=== PATIENT | female | born 1960 | race Caucasian/White ===

== ENCOUNTER 2025-04-16 16:31 | Inpatient (IN) | payer MEDICAID ==
[~2025-04-16] VITALS: Ht 157.5 cm; Wt 44.4 kg
[2025-04-16 18:43] LABS: MEAN PLATELET VOLUME 6.7 FL (7.4-10.4); RED CELL DISTRIBUTION WIDTH 16.2 % (11.5-14.5)
[2025-04-16 18:56] LABS: CREATININE 0.69 MG/DL (0.40-0.90); TOTAL CARBON DIOXIDE 20.3 MMOL/L (24-32); eCRCL 67 ML/MIN; eGFR 86 ML/MIN
[2025-04-16] MEDS: normal saline 1000ml 1,000 ML IV ONE (20:02)
[2025-04-16] MEDS: HYDROcodone/acetaminophen 10/325mg tab PO ONE ×2 (20:11→23:26)
--- NOTE | 2025-04-16 20:33 | RADIOLOGY REPORT ---
EXAM: CT CTA ABDOMEN PELVIS HISTORY: history of ischemic bowel COMPARISON: XR ABDOMEN AP + DECUB OR ERECT 2 VIEWS on DOS: 04/01/25 TECHNIQUE: CT angiogram of the abdomen and pelvis. CT scans at this facility use dose modulation, iterative reconstruction, and/or weight based dosing when appropriate to reduce radiation dose to as low as reasonably achievable. 100 mL of low osmolar contrast was administered without adverse effect. 3-D postprocessing was performed on a separate workstation under radiologist supervision. MIPs were created. VASCULAR FINDINGS: Celiac artery stent with normal distal opacification and without stent occlusion. Mixed atherosclerotic plaque with distal complete occlusion of the superior mesenteric artery (2-69). Mixed atherosclerotic plaque however patent bilateral renal arteries. Fusiform infrarenal ectasia measuring 2.6 cm with mixed atherosclerotic plaque causing up to 50 percent stenosis with predominantly soft plaque. Significant narrowing of bilateral common iliac arteries secondary to soft plaque with greater than 75 percent stenosis bilaterally. appearance of complete occlusion of the right external iliac artery (axial 133). Poor distal opacification of bilateral proximal femurs of the proximal femoral arteries. Nonvisualization of the inferior mesenteric artery likely completely occluded NON-VASCULAR FINDINGS: [LUNG BASES]: Calcific granuloma in the right middle lobe. The cardiac size is normal without pericardial effusion. [LIVER]: Small amount of fatty infiltration along the falciform ligament. [GALLBLADDER AND BILIARY TREE]: Surgically absent. [id number]-[id number] intrahepatic biliary dilation. Common bile duct dilation measuring up to 1.1 cm. No definitive filling defect [SPLEEN]: Unremarkable. [PANCREAS]: Unremarkable. [ADRENAL GLANDS]: Unremarkable [KIDNEYS]: No hydronephrosis. No nephroureterolithiasis. No suspicious focal lesion. [BLADDER]: Unremarkable for the degree distention. [PELVIC ORGANS]: Unremarkable. [BOWEL/MESENTERY]: Air-fluid level of the stomach with proximal mucosal hyperenhancement relative mucosal hyperenhancement of the ascending colon in the right lower quadrant (axial 87). Evidence of suspected pneumatosis intestinalis interval short-segment of presumed small bowel with the areas of bubbly lucency internally (axial 77). Imaging finding may be compatible with bowel ischemia. Correlate with lactate levels. No definitive portal venous gas. [ASCITES]: Absent [LYMPHADENOPATHY]: No pathologically enlarged lymph nodes by CT size criteria [ABDOMINAL WALL]: Unremarkable. [MUSCULOSKELETAL]: No acute fracture or aggressive focal osseous lesion. Multifocal degenerative change of the visualized spine. Left hip arthroplasty. Lumbar fusion hardware. Superior endplate height loss measuring 20-30 percent at T12. IMPRESSION: 1. Evidence of suspected pneumatosis intestinalis interval short-segment of presumed small bowel with the areas of bubbly lucency internally (axial 77). Imaging finding may be compatible with bowel ischemia. Correlate with lactate levels. 2. Mixed atherosclerotic plaque with distal complete occlusion of the superior mesenteric artery 3. Appearance of complete occlusion of the right external iliac artery 4. Poor distal opacification of bilateral proximal femurs of the proximal femoral arteries. 5. Significant narrowing of bilateral common iliac arteries secondary to soft plaque with greater than 75 percent stenosis 6. Nonvisualization of the inferior mesenteric artery likely completely occluded
[2025-04-16] MEDS ORDERED: magnesium hydroxide 30ml (MOM) UD suspension PO PRN (22:45)
[2025-04-16] MEDS ORDERED: HYDROmorphone/PF 0.2 MG/ML SYRINGE IV PRN (22:45)
[2025-04-16] MEDS ORDERED: mag hydrox/Alum hydrox/simeth 30ml oral suspension PO PRN (22:45)
[2025-04-16] MEDS ORDERED: magnesium sulf-water 2g/50mL 50 ML IV PRN (22:45)
[2025-04-16] MEDS ORDERED: magnesium Cl slow-release 64mg tablet PO PRN (22:45)
[2025-04-16] MEDS ORDERED: HYDROmorphone inj. 0.5 MG/0.5 ML DISP.SYRIN IV PRN (22:45)
[2025-04-16] MEDS ORDERED: potassium Cl 40MEQ/1/2NS 520ml 520 ML IV PRN (22:45)
[2025-04-16] MEDS ORDERED: magnesium sulf-water 4G/100mL 100 ML IV PRN (22:45)
[2025-04-16] MEDS ORDERED: potassium Cl 20 mEq SR tablet PO PRN ×2 (22:45)
--- NOTE | 2025-04-16 23:13 | HISTORY AND PHYSICAL-Residence ---
History & Physical Providers to CC Resident Creating Document: JULIANNE ANGELES, RES CC: SOFYA GUERRA MD ~ History of Present Illness Reason for Admit\Complaint: Abdominal pain History of Present Illness A 64-year-old female patient with a medical history that includes type 2 diabetes complicated by bilateral below-knee amputations, hyperlipidemia, hypertension, and congestive heart failure, recently underwent a celiac artery stent placement a few weeks ago. She presented to the (ED) with complaints of abdominal pain. The patient described her abdominal pain as diffuse, with more severe discomfort around the umbilical area. She rated the pain as a 5 out of 10 and denied any radiation, aggravating, or relieving factors. The patient mentioned that she felt perfectly normal until a couple of weeks ago when she developed severe abdominal pain, which led to her celiac artery stent placement. The patient was admitted to [facility] yesterday for abdominal pain. As per patient, despite or letting them know that she experiences mild bleeding after receiving blood thinners, she was given a blood thinner, which resulted in profuse nasal bleeding. Dissatisfied with her treatment at [place], she chose to discharge herself. Her abdominal pain persisted, prompting her to return to our emergency department. The patient's primary care physician is located at the [facility]. She lives in her home with her and uses an electric wheelchair for mobility. Although she has prosthetic limbs, she finds them uncomfortable to use. Allergies: Coded Allergies: atorvastatin (Verified Allergy, Unknown, 04/16/25) Past Medical History Past Medical History Diabetes mellitus complicated with bilateral below-knee amputation Hypertension Hyperlipidemia Congestive heart failure Past Surgical History Surgical History Comment Bilateral below-knee amputation Cholecystectomy Recent celiac artery stents placement Past Social History Social History Comment Patient used to smoke about two packs of cigarettes for 30 years, he quit smoking few years ago She denied any alcohol/illicit drug use ROS ROS Constitutional: No fever, dizziness, no weakness, no decrease in appetite HEENT: Normal vision. No sore throat, mild epistaxis, tinnitus Cardiovascular: No chest pain/discomfort, palpitations, syncope. no pedal edema Respiratory: No sob, cough,hemoptysis Gastrointestinal: Diffuse abdominal pain, no nausea, no vomiting. No diarrhea, melena. Genitourinary: No frquency, urgency, incontinence, nocturia. No dysuria, hematuria Musculoskeletal: Normal, no pains, bilateral below-knee amputations Endocrine: No fatigue, polydipsia, polyuria. No heat or cold intolerance Neurologic: No headache, vertigo. No weakness, numbness or tingling of extremities Psychiatric: No hallucinations/delusions, no anhedonia, no suicidal ideation Hematologic: No bruises Exam Vitals: Vital Signs Date Time Temp Pulse Resp B/P (MAP) Pulse Ox O2 Delivery O2 Flow Rate FiO2 04/16/25 20:30 68 16 90/44 (59) 99 0 04/16/25 18:54 98.5 General: General: Awake, oriented to person, place and time HEENT: Conjunctive are pink, sclerae clear, no icterus, pupil is equal in both sides, reactive to light, no ear discharge, no pharyngeal erythema or an edema. Neck: Supple, no JVD, no lymphadenopathy and thyromegaly. Chest: Decreased bilateral air entry, no additional sounds no rhonchi no wheezing at the moment. Cardiovascular: S1-S2 regular sinus rhythm and, regular rate, no gallops, no rubs, no murmurs Abdomen: No visible peristalsis, Bowel sounds present on auscultation, soft, m ild tenderness present near umbilicus, no guarding, no rigidity Extremities: Bilateral below-knee amputation, no pitting edema bilaterally. Neurologic: Mental status: alert and conscious, oriented to place, person and time, preserved memory, normal speech. Cranial nerves I-XII: Normal. Motor system: Preserved power, coordination, no evidenced involuntary movements, Sensory system: Preserved temperature, pain and vibration sensation. 2+ deep tendon reflexes in biceps, triceps, quadriceps. Negative Babinski. Cerebellar: No nystagmus, dysdiadochokinesia, normal [id number] testing. Musculoskeletal: No joint swelling, deformities, inflammations, and no scoliosis and back tenderness Skin: Warm and dry. Dry oral mucosa. Diagnostic Data Last Recorded Lab Results: 04/18/2553304/18/25533 Advance Care Planning Advanced Care plannin - 30 Minutes (Spent 17 minutes discussing advanced care planning/resuscitative methods patient decided she wanted to be full code) Additional Plan Assessment A 64-year-old female patient with a medical history that includes type 2 diabetes complicated by bilateral below-knee amputations, hyperlipidemia, hypertension, and congestive heart failure, recently underwent a celiac artery stent placement a few weeks ago. She presented to the (ED) with complaints of abdominal pain. Patient is currently being evaluated for her abdominal pain Chronic abdominal pain 2/2 recent celiac artery stent placement Patient has diffuse abdominal pain especially near the umbilical region, rated the pain 5/10 Abdominal CTA reported suspected pneumatosis intestinalis, possible bowel ischemia. 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 ED physician Dr. Monterroso consulted surgeon Dr. Gonzalez, wanted the patient to be admitted for pain management and further evaluation in a.m. Lactic acid normal, WBC normal, elevated alkaline phosphatase Plan Pain medications in place Consult Dr. Gonzalez again in a.m. Hypertension Patient has a history of hypertension for which she takes antihypertensive medication, Currently patient has soft blood pressures, patient received 1 L fluid bolus in ED Hold antihypertensive medications Hyperlipidemia Waiting med rec, ordered lipid panel Patient has allergy to atorvastatin Diabetes mellitus type 2 HGB A1c well controlled at 5.4 Initiated the patient on hyperglycemia hypoglycemic protocol Chronic Congestive heart failure with unknown ejection fraction Patient does not appear fluid overload, decreased breath sounds on auscultation with no crackles heard ProBNP elevated at 6000 Patient received 1 L fluid bolus in ED as she was hypotensive Ordered chest x-ray, echocardiogram Pending med rec Bidirectional Anemia Hemoglobin 10.3, MCV normal, RDW high Follow up with iron studies As per patient she has anticoagulant associated epistaxis, refrain from using any anticoagulants Code Status: Full code DVT Prophylaxis: SCDs Lines/Tubes: PIV Nutrition: NPO PT:yes Prognosis: Guarded Disposition: Continue to monitor the patient, follow with echocardiogram, touch base with Dr. Gonzalez in a.m. Julianne Angeles MD Internal medicine resident,PGY-1 Date of Service: Apr 16, 2025 Billing Provider: SOFYA GUERRA MD Addendum Attestation I agree with the residents assessment and plan as below: 64 year old female admitted after stent placement in the iliac artery with abdominal pain Plan: surgery consult pain management with dilaudid and narco mIVF follow final CT read CCT 55 min using HIPPA compliant A/V technology JULINANE ANGELES, RES Apr 16, 2025 23:13 SOFYA GUERRA MD Apr 18, 2025 18:22
[2025-04-16 23:16] LABS: CHOL/HDL RATIO 5.7 (0.00-4.99); LDL CHOLESTEROL 70 MG/DL (50-100); PHOSPHORUS 3.0 MG/DL (2.3-4.5); PRO BRAIN NATRIURETIC PEPTIDE 6030 PG/ML (0-125)
[2025-04-16] MEDS ORDERED: glucagon, human recombinant 1mg kit SUBCUT PRN (23:20)
[2025-04-16] MEDS ORDERED: DEXTROSE 15 GM of carb/4 tabs (each vial/BOTTLE has 4 tablets) PO PRN ×2 (23:20)
[2025-04-16] MEDS ORDERED: dextrose 50%-water 50ml dispensing syringe IV PRN ×2 (23:20)
[2025-04-16] MEDS: PERFLUTREN PROTEIN-A MICROSPHR (Optison) 0.22 MG/ML 3ML VIAL IV ONE (23:37)
[2025-04-16 23:38] LABS: APTT 24 SECONDS (22-32); INR 1.0 INR
[2025-04-17] MEDS: HYDROcodone/acetaminophen 10/325mg tab PO PRN (05:00)
--- NOTE | 2025-04-17 05:48 | Physician Documentation ---
History of Present Illness Chief Complaint: Abdominal Pain Stated Complaint: SEE CHIEF COMPLAINT Time Seen by MD: 18:09 Mode of Arrival: POV, Ambulatory HPI A 64-year-old female patient with a medical history that includes type 2 diabetes complicated by bilateral below-knee amputations, hyperlipidemia, hypertension, and congestive heart failure, recently underwent a celiac artery stent placement a few weeks ago. She presented to the (ED) with complaints of abdominal pain. The patient described her abdominal pain as diffuse, with more severe discomfort around the umbilical area. She rated the pain as a 5 out of 10 and denied any radiation, aggravating, or relieving factors. The patient mentioned that she felt perfectly normal until a couple of weeks ago when she de veloped severe abdominal pain, which led to her celiac artery stent placement. The patient was admitted to [facility] yesterday for abdominal pain. As per patient, despite or letting them know that she experiences mild bleeding after receiving blood thinners, she was given a blood thinner, which resulted in profuse nasal bleeding. Dissatisfied with her treatment at [place], she chose to discharge herself. Her abdominal pain persisted, prompting her to return to our emergency department. Medication Reconciliation Allergies: Coded Allergies: atorvastatin (Verified Allergy, Unknown, 04/16/25) Scheduled Carvedilol (Carvedilol), 1 TAB PO DAILY, (Reported) Clopidogrel Bisulfate (Clopidogrel), 1 TAB PO DAILY, (Reported) Furosemide (Furosemide), 1 TAB PO DAILY, (Reported) Glimepiride (Glimepiride), 1 TAB PO DAILY, (Reported) Hydrochlorothiazide (Hydrochlorothiazide), 1 TAB PO DAILY, (Reported) Lisinopril (Lisinopril), 1 TAB PO DAILY, (Reported) Losartan Potassium (Losartan Potassium), 1 TAB PO DAILY, (Reported) Sennosides (Senna), 2 TAB PO DAILY, (Reported) Spironolactone (Spironolactone), 1 TAB PO DAILY, (Reported) Scheduled PRN Oxycodone Hcl (Roxicodone), 1 TAB PO QID PRN for pain, (Reported) Miscellaneous Medications Rivaroxaban (Xarelto), (Reported) Past Medical History Smoking Status: Former smoker Review of Systems All Other Systems at this time: Reviewed and Negative Physical Exam Vital Signs: RN Vital Signs have been reviewed: Yes, Temperature: 98.1, Source: Oral, Heart Rate: 74, Respiratory Rate: 18, BP: 104/56, Pulse Oximetry: 98, Weight: 50.000 Oxygen Flow Rate: 0 Physical Exam General: Alert, no apparent distress. Respiratory: Lungs clear, no respiratory distress. Cardiovascular: Regular rate and rhythm, no murmurs. Gastrointestinal: Soft,mildly TTP diffusely, nondistended. Bowels sounds present. Extremities: Normal range of motion, no deformity. Neurologic: Oriented x4. Psychiatric: Normal mood and affect. Skin: Normal color, warm and dry. No edema, no ecchymosis. Progress Results/Orders Results/Orders Completed Orders - BRANDY BAUMAN MD Hydrocodone/Apap 10/325 ([place] 10/325mg (04/16/25 22:40) Medications Received in ER Medications (Trade) Dose Ordered Sig/Pietro Route PRN Reason Start Time Stop Time Status Last Admin Dose Admin ([place] 10/325mg tab) 1 tab ONCE ONCE PO 04/16/25 22:40 04/16/25 22:41 DC 04/16/25 23:26 1 TAB ([place] 10/325mg tab) 1 tab Q4H PRN PO SEVERE PAIN 7-10 04/16/25 22:45 04/17/25 05:00 1 TAB Vital Signs 04/16/25 04/16/25 04/16/25 04/16/25 18:36 18:36 18:54 19:19 Temp 98.5 Pulse 65 64 66 Resp 12 16 16 13 B/P (MAP) 91/58 (69) 85/59 (68) 97/39 (58) Pulse Ox 98 99 98 O2 Flow Rate 0 0 0 04/16/25 04/16/25 04/16/25 04/16/25 20:30 21:00 22:00 23:26 Pulse 68 76 80 Resp 16 18 12 14 B/P (MAP) 90/44 (59) 112/54 (73) 119/63 (81) Pulse Ox 99 100 100 O2 Flow Rate 0 04/16/25 04/16/25 04/17/25 04/17/25 23:49 23:59 02:31 04:00 Temp 98.1 Pulse 75 98 74 Resp 18 15 16 18 B/P (MAP) 100/51 (67) 124/60 (81) 104/56 (72) Pulse Ox 98 97 98 O2 Flow Rate 0 04/17/25 05:00 Resp 18 Laboratory Tests Test 04/16/25 23:18 Prothrombin Time 10.6 INR International Normalized Ratio 1.0 Activated Partial Thromboplast Time 24 Coagulation Comments Medical Decision Making Additional information obtaine: N/A Findings 64 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 CTA demonstrated a number of abnormalities in the patient's mesenteric blood flow which were discussed with Dr. Anderson, our vascular surgeon. He recommended admission and further workup. Differential Dx:Considerations: Other Additional Comments Ddx = mesenteric ischemia, peripheral vascular disease, ischemic colitis, chronic pain Departure Disposition: ADMITTED INPATIENT Admitted to Inpatient Unit: to hospitalist Admission Level of Care: Med/Surg Impression: Primary Impression: Abdominal pain Condition: Stable Referrals: NO PRIMARY CARE PROVIDER (PCP) Education Educated: Patient Educated regarding: diagnosis, treatment, prognosis, need for follow up Signature Scribe Signature: . Attestation: . BRANDY BAUMAN MD Apr 17, 2025 05:48
[2025-04-17] MEDS ORDERED: CLOP75TA34 PO (06:02)
[2025-04-17] MEDS ORDERED: CARV6.2553 PO (06:02)
[2025-04-17] MEDS ORDERED: OXYC5TAB2 PO (06:02)
[2025-04-17] MEDS ORDERED: HYDR25TA4 PO (06:02)
[2025-04-17] MEDS ORDERED: FURO20TA4 PO (06:02)
[2025-04-17] MEDS ORDERED: RIVA2.5T (06:02)
[2025-04-17] MEDS ORDERED: LOSA100T58 PO (06:02)
[2025-04-17] MEDS ORDERED: SENN-360 PO (06:02)
[2025-04-17] MEDS ORDERED: LISI5TAB22 PO (06:02)
[2025-04-17] MEDS ORDERED: SPIR25TA5 PO (06:02)
[2025-04-17] MEDS ORDERED: GLIM2TAB6 PO (06:02)
[2025-04-17] MEDS: INSULIN LISPRO 100 UNIT/ML INSULN.PEN MULTI-DOSE SQ SCH (07:00)
[2025-04-17] MEDS: docusate sod 100mg capsule PO SCH (07:14)
[2025-04-17] MEDS: K and/or MAG REPLACEMENT MC SCH (07:14)
[2025-04-17 07:30] LABS: MEAN PLATELET VOLUME 6.5 FL (7.4-10.4); RED CELL DISTRIBUTION WIDTH 16.2 % (11.5-14.5)
[2025-04-17 07:45] LABS: CREATININE 0.57 MG/DL (0.40-0.90); TOTAL CARBON DIOXIDE 17.5 MMOL/L (24-32); eCRCL 81 ML/MIN; eGFR > 90 ML/MIN
[2025-04-17 07:52] LABS: % IRON SATURATION 24 % (11-46)
--- NOTE | 2025-04-17 08:53 | RADIOLOGY REPORT ---
CHEST RADIOGRAPH Indication: CHF Technique: Single frontal view of the chest was obtained COMPARISON: XR CHEST 1 VIEW AP OR PA on DOS: 03/30/25, CT CHEST WO CON on DOS: 02/22/25 FINDINGS: Lungs and pleural spaces are clear. Cardiac silhouette and north are within normal limits. Bones and soft tissues demonstrate no significant abnormality. IMPRESSION: No acute disease. R
[2025-04-17 09:46] LABS: C DIFFICILE TOXINS A&B POSITIVE (Neg)
[2025-04-17 09:47] LABS: C DIFF ANTIGEN POSITIVE (NEGATIVE); C DIFF SPECIMEN=DIARRHEA? ACCEPTABLE
[2025-04-17 10:12] VITALS: BP 125/57; PULSE 95; RESP 16; TEMP 97.4; O2SAT 98
[2025-04-17] MEDS: vancomycin 125 MG/5 ML UD oral SOLN.RECON 5mL oral syringe (FIRVANQ) PO SCH ×2 (12:03→19:02)
[2025-04-17 13:39] VITALS: RESP 18; O2SAT 98
[2025-04-17 15:00] VITALS: BP 110/56; PULSE 66; RESP 18; TEMP 98.3; O2SAT 98
--- NOTE | 2025-04-17 16:24 | PROGRESS NOTE- Residence ---
Progress Note - Resident Providers to CC Resident Creating Document: KAYLA GREGORIO RES ~ Antibiotic Timeout Antibiotic Ordered?: Yes Subjective Patient was seen and examined on bedside, reports she has periumbilical pain, denies nausea vomiting and was complaining of watery diarrhea since couple of weeks. Patient also reported that doctor at [facility] told him to stop blood thinner because of nosebleeding. Records that she is allergic to atorvastatin but patient dont remember anything related to allergy. Objective Vital Signs Date Time Temp Pulse Resp B/P (MAP) Pulse Ox O2 Delivery O2 Flow Rate FiO2 04/17/25 13:39 18 98 Room Air 04/17/25 10:12 97.4 95 125/57 (79) 04/17/25 09:42 0 Result Diagram: 04/17/2571704/17/25 0718 General: Awake, oriented to person, place and time HEENT: Conjunctive are pink, sclerae clear, no icterus, pupil is equal in both sides, reactive to light, no ear discharge, no pharyngeal erythema or an edema. Neck: Supple, no JVD, no lymphadenopathy and thyromegaly. Chest: no additional sounds no rhonchi no wheezing at the moment. Cardiovascular: S1-S2 regular sinus rhythm and, regular rate, no gallops, no rubs, no murmurs Abdomen: No visible peristalsis, Bowel sounds present on auscultation, soft, m ild tenderness present near umbilicus, no guarding, no rigidity Extremities: Bilateral below-knee amputation, no pitting edema bilaterally. Neurologic: Mental status: alert and conscious, oriented to place, person and time, preserved memory, normal speech. Cranial nerves I-XII: Normal. Motor system: Preserved power, coordination, no evidenced involuntary movements, Sensory system: Preserved temperature, pain and vibration sensation. 2+ deep tendon reflexes in biceps, triceps, quadriceps. Negative Babinski. Cerebellar: No nystagmus, dysdiadochokinesia, normal [id number] testing. Musculoskeletal: No joint swelling, deformities, inflammations, and no scoliosis and back tenderness Skin: Warm and dry. Dry oral mucosa. Coagulation Studies Laboratory Tests Test 04/16/25 23:18 Prothrombin Time 10.6 SECONDS (9.0-12.0) INR International Normalized Ratio 1.0 INR Activated Partial Thromboplast Time 24 SECONDS (22-32) Coagulation Comments Advance Care Planning Advanced Care plannin - 30 Minutes Plan Plan Chronic abdominal pain 2/2 recent celiac artery stent placement Patient has diffuse abdominal pain especially near the umbilical region, rated the pain 5/10 Abdominal CTA reported suspected pneumatosis intestinalis, possible bowel ischemia. 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 ED physician Dr. Monterroso consulted surgeon Dr. Anderson, wanted the patient to be admitted for pain management, Awaiting Dr. Dr. Boss recommendations. Lactic acid normal, WBC elevated, elevated alkaline phosphatase C diff is positive in view of that started patient on p.o. vancomycin Hypertension Patient has a history of hypertension for which she takes antihypertensive medication, Currently patient has soft blood pressures, patient received 1 L fluid bolus in ED Continued carvedilol 6.25 and losartan 100 mg BP 125/79, monitor for BP closely Hyperlipidemia LDL cholesterol 70, cholesterol 147, triglycerides 147 Patient has allergy to atorvastatin Diabetes mellitus type 2 HGB A1c well controlled at 5.4 Initiated the patient on hyperglycemia hypoglycemic protocol Chronic Congestive heart failure with with preserved ejection fraction not in acute excerabation Patient does not appear fluid overload,no crackle. ProBNP elevated at 6000 Patient received 1 L fluid bolus in ED as she was hypotensive. Echo shows LVEF is 65-70%. Continue carvedilol 6.25 mg, losartan 100 mg, will continue other medications if patient tolerates, BP remained stable. Code Status: Full Code Dvt Prophylaxis: SCDS Disposition: Awaiting surgeon recommendation, patient reports that Doctor at [facility] told him to stop blood thinners because of nosebleeding. Date of Service: Apr 17, 2025 Billing Provider: VINAYAK QUINN MD, SANJAY, RES Apr 17, 2025 16:24
--- NOTE | 2025-04-17 17:13 | CARDIOLOGY REPORT ---
APPROVED REPORT EXAM: Comprehensive 2D, Doppler, and color-flow Echocardiogram. Patient Location: ED13 Blood Pressure: 99/52 mmHg Heart Rate: 64 bpm Rhythm: NSR Indications CONGESTIVE HEART FAILURE ELEVATED PROBNP 6030 HLD HTN DUB ROOM ENGINEER: None. PRIOR ECHOCARDIOGRAM: None. 2D Dimensions RVDd 1.9 cm IVSd 0.8 (0.7-1.1cm) LVDd 4.2 cm PWd 0.9 (0.7-1.1cm) IVSs 1.3 (0.8-1.2cm) LVDs 2.6 (2.5-4.0cm) PWs 1.1 (0.8-1.2cm) LVOT Diameter 1.94 (1.8-2.4cm) LVEF(%) 66.7 (>50%) FS (%) 36.5 % SV 51.6 ml CO 3.1 L/min M-Mode Dimensions Left Atrium(MM) 3.04 (2.5-4.0cm) Aortic Root 3.04 (2.2-3.7cm) Aortic Cusp Exc 2.05 (1.5-2.0cm) Aortic Valve AoV Peak Jhonny. 129.6 cm/s AoV VTI 21.1 cm AO Peak GR. 6.7 mmHg AO Mean GR. 3 mmHg LVOT VTI 17.00 cm LVOT Peak Jhonny. 100.4 cm/s SHANE (VTI) 2.38 cm2 AV DI 0.81 % Mitral Valve MV E Velocity 62.4 cm/s MV Peak Gr. 2 mmHg MV A Velocity 74.8 cm/s MV PHT 72 ms E/A Ratio 0.8 MVA (PHT) 3.06 cm2 MV VMax 68.6 cm/s LEFT VENTRICLE Normal LV size and wall thickness. Overall systolic function is normal. LVEF is 65-70%. RIGHT VENTRICLE RV is normal size and function. ATRIA The left atrium size is normal. The right atrium size is normal. AORTIC VALVE Trileaflet AV appears mildly sclerotic without stenosis. No insufficiency. MITRAL VALVE Mild mitral annular calcification without stenosis Trace regurgitation. TRICUSPID VALVE TV appears structurally normal with trace regurgitation. PULMONIC VALVE Pulmonic valve is not well visualized. GREAT VESSELS The aortic root is normal in size. The IVC is normal in size and collapses >50% with inspiration. PERICARDIUM Normal pericardium. No effusion. Other Information Study Quality: Fair Conclusion Normal LV size and wall thickness. Overall systolic function is normal. LVEF is 65-70%. RV is normal size and function. The left atrium size is normal. Trileaflet AV appears mildly sclerotic without stenosis. No insufficiency. Mild mitral annular calcification without stenosis Trace regurgitation. TV appears structurally normal with trace regurgitation. Normal pericardium. No effusion.
[2025-04-17 18:00] VITALS: BP 109/60; PULSE 69; RESP 16; TEMP 96.5; O2SAT 96
--- NOTE | 2025-04-17 19:51 | PROGRESS NOTE ---
Progress Note ID Providers to CC ~ Progress Note Progress Note: pt seen and examined-needs ct with oral contrast CORTNEY MCNALLY MD Apr 17, 2025 19:51
[2025-04-17 20:00] VITALS: RESP 16; O2SAT 96
[2025-04-17] MEDS: diatr meglu/diatrizoate 30ml oral sol.-(3 dose) bottle PO SCH (21:50)
[2025-04-17 22:00] VITALS: BP 110/62; PULSE 74; RESP 13; TEMP 97.4; O2SAT 97
[2025-04-18] VITALS (8 sets, daily range): BP systolic 96–126; BP diastolic 47–66; PULSE 57–72; RESP 10–21; TEMP 97–98.1; O2SAT 95–98
[2025-04-18 06:34] LABS: MEAN PLATELET VOLUME 6.6 FL (7.4-10.4); RED CELL DISTRIBUTION WIDTH 15.8 % (11.5-14.5)
[2025-04-18 06:50] LABS: CREATININE 0.58 MG/DL (0.40-0.90); TOTAL CARBON DIOXIDE 19.9 MMOL/L (24-32); eCRCL 79 ML/MIN; eGFR > 90 ML/MIN
[2025-04-18] MEDS: carvedilol 6.25mg tablet PO SCH (07:23)
[2025-04-18] MEDS: HYDROcodone/acetaminophen 5mg/325mg tablet PO PRN (07:47)
[2025-04-18 08:18] LABS: BANDS% (MANUAL) 4.0 % (0-10); LYMPHOCYTES % (MANUAL) 11.0 % (21-51); METAMYLEOCYTES% (MANUAL) 1.0 % (0-0); MONOCYTES % (MANUAL) 4.0 % (2-12); NEUTROPHILS % (MANUAL) 80.0 % (42-75)
[2025-04-18 08:19] LABS: PLATELET ESTIMATE INCREASED
[2025-04-18] MEDS: diatr meglu/diatrizoate 30ml oral sol.-(3 dose) bottle PO SCH (10:24)
--- NOTE | 2025-04-18 11:56 | RADIOLOGY REPORT ---
Indication: ISCHEMIC BOWL/MES ART OCLUSSION Technique: CT axial images of the abdomen and pelvis are obtained without contrast. Coronal and sagittal reformats were obtained. Radiation Dose Information: CTDI volume is 10 mGy. Dose-length product is 491 mGy*cm Comparison: CT CTA ABDOMEN PELVIS on DOS: 04/16/25, FINDINGS: There is limited interpretation of the abdomen and pelvis without administration of intravenous contrast. Right middle lobe calcified nodule measuring 1 cm. Adrenal glands, spleen, pancreas unremarkable in shape. No evidence for cholelithiasis. Liver unremarkable in shape. Nonobstructing right renal calculi up to 2 mm. Nonobstructing left renal calculi up to 6 mm. No hydronephrosis bilaterally. Gastric distention. Small bowel loops are m distended in the right abdomen up to approximately 4.5 cm. Possible mild pneumatosis in the right abdominal small bowel loops short-segment, less pronounced than on prior examination. There is regions of bowel wall thickening involving small and large bowel. Moderate distention of the large bowel. Contrast extends to the rectum. Abdominal aortic atherosclerotic disease. Aneurysmal dilatation of the infrarenal abdominal aorta up to 2.5 x 2.8 cm. Bladder is partially distended. No inguinal lymphadenopathy. Left hip arthroplasty. Posterior fixation of the L4 and L5 vertebral bodies as well as anterior fixation, interbody disc spacer. Chronic appearing T12 compression deformity with 30% loss height. IMPRESSION: Limited evaluation without contrast. Can not appropriately evaluate the mesenteric circulation without IV contrast. Moderate distention small bowel loops and scattered regions of bowel wall thickening involving the small and large bowel which can be secondary to entero colitis, inflammatory disease. Possible small amount of pneumatosis within right abdominal small bowel loops, appears less pronounced than on previous examination. Again, correlate for ischemia Enteric contrast reaches the rectum. Atherosclerotic disease. 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 Nonobstructing bilateral renal calculi. Other findings as described
--- NOTE | 2025-04-18 18:50 | PROGRESS NOTE ---
Progress Note ID Providers to CC ~ Progress Note Progress Note: ct unremarkable-ok to resume diet CORTNEY MCNALLY MD Apr 18, 2025 18:50
--- NOTE | 2025-04-18 19:23 | PROGRESS NOTE- Residence ---
Progress Note - Resident Providers to CC Resident Creating Document: KAYLA GREGORIO RES ~ Antibiotic Timeout Antibiotic Ordered?: No Subjective Patient was seen and examined on bedside, reports mild abdominal painn , denies nausea and vomitting. Objective Vital Signs Date Time Temp Pulse Resp B/P (MAP) Pulse Ox O2 Delivery O2 Flow Rate FiO2 04/18/25 15:00 97.7 61 12 121/53 (75) 96 Room Air 04/17/25 09:42 0 Result Diagram: 04/18/25 0534 04/18/25 0534 General: Awake, oriented to person, place and time HEENT: Conjunctive are pink, sclerae clear, no icterus, pupil is equal in both sides, reactive to light, no ear discharge, no pharyngeal erythema or an edema. Neck: Supple, no JVD, no lymphadenopathy and thyromegaly. Chest: no additional sounds no rhonchi no wheezing at the moment. Cardiovascular: S1-S2 regular sinus rhythm and, regular rate, no gallops, no rubs, no murmurs Abdomen: No visible peristalsis, Bowel sounds present on auscultation, soft, m ild tenderness present near umbilicus, no guarding, no rigidity Extremities: Bilateral below-knee amputation, no pitting edema bilaterally. Neurologic: Mental status: alert and conscious, oriented to place, person and time, preserved memory, normal speech. Cranial nerves I-XII: Normal. Motor system: Preserved power, coordination, no evidenced involuntary movements, Sensory system: Preserved temperature, pain and vibration sensation. 2+ deep tendon reflexes in biceps, triceps, quadriceps. Negative Babinski. Cerebellar: No nystagmus, dysdiadochokinesia, normal [id number] testing. Musculoskeletal: No joint swelling, deformities, inflammations, and no scoliosis and back tenderness Skin: Warm and dry. Dry oral mucosa. Coagulation Studies Laboratory Tests Test 04/16/25 23:18 Prothrombin Time 10.6 SECONDS (9.0-12.0) INR International Normalized Ratio 1.0 INR Activated Partial Thromboplast Time 24 SECONDS (22-32) Coagulation Comments Advance Care Planning Advanced Care plannin - 30 Minutes Plan Plan Chronic abdominal pain 2/2 recent celiac artery stent placement Patient has diffuse abdominal pain especially near the umbilical region, rated the pain 5/10 Abdominal CTA reported suspected pneumatosis intestinalis, possible bowel ischemia. 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 ED physician Dr. Monterroso consulted surgeon Dr. Anderson, wanted the patient to be admitted for pain management, Lactic acid normal, WBC elevated, elevated alkaline phosphatase C diff is positive in view of that started patient on p.o. vancomycin Dr Diaz was consulted who recommended abd/pelvis ct with oral contrast which showed Moderate distention small bowel loops and scattered regions of bowel wall thickening involving the small and large bowel which can be secondary to entero colitis, inflammatory disease. Possible small amount of pneumatosis within right abdominal small bowel loops, appears less pronounced than on previous examination. Dr Diaz recommended to resume diet. Hypertension Patient has a history of hypertension for which she takes antihypertensive medication, Currently patient has soft blood pressures, patient received 1 L fluid bolus in ED Continued carvedilol 6.25 and losartan 100 mg BP 125/79, monitor for BP closely Hyperlipidemia LDL cholesterol 70, cholesterol 147, triglycerides 147 Patient has allergy to atorvastatin Diabetes mellitus type 2 HGB A1c well controlled at 5.4 Initiated the patient on hyperglycemia hypoglycemic protocol Chronic Congestive heart failure with with preserved ejection fraction not in acute excerabation Patient does not appear fluid overload,no crackle. ProBNP elevated at 6000 Patient received 1 L fluid bolus in ED as she was hypotensive. Echo shows LVEF is 65-70%. Continue carvedilol 6.25 mg, losartan 100 mg, will continue other medications if patient tolerates, BP remained stable. Code Status: Full Code Dvt Prophylaxis: SCDS Disposition: Surgeon Dr Diaz was consulted who recommended CT abdomen pevlis with contrast as per surgeon continue to resume diet, patient reports that Doctor at [facility] told him to stop blood thinners because of nosebleeding. Date of Service: Apr 18, 2025 Billing Provider: VINAYAK QUINN MD,KAYLA, RES Apr 18, 2025 19:23
[2025-04-19] VITALS (8 sets, daily range): BP systolic 122–158; BP diastolic 55–83; PULSE 50–73; RESP 13–20; TEMP 96.2–97.8; O2SAT 92–96
[2025-04-19 07:16] LABS: MEAN PLATELET VOLUME 6.4 FL (7.4-10.4); RED CELL DISTRIBUTION WIDTH 16.2 % (11.5-14.5)
[2025-04-19] MEDS: multivitamins, therapeutics tablet PO SCH (07:22)
[2025-04-19 07:37] LABS: CREATININE 0.54 MG/DL (0.40-0.90); TOTAL CARBON DIOXIDE 24.9 MMOL/L (24-32); eCRCL 76 ML/MIN; eGFR > 90 ML/MIN
[2025-04-19 07:53] LABS: LARGE PLATELETS FEW; LYMPHOCYTES % (MANUAL) 12.0 % (21-51); METAMYLEOCYTES% (MANUAL) 6.0 % (0-0); MONOCYTES % (MANUAL) 8.0 % (2-12); NEUTROPHILS % (MANUAL) 74.0 % (42-75); PLATELET ESTIMATE INCREASED
[2025-04-19] MEDS: salt irrigation nasal spray 45 ML SPRAY NS PRN (13:25)
--- NOTE | 2025-04-19 19:25 | PROGRESS NOTE- Residence ---
Progress Note - Resident Providers to CC Resident Creating Document: KAYLA GREGORIO RES ~ Antibiotic Timeout Antibiotic Ordered?: Yes Subjective Patient was seen and examined on bedside, reports mild abdominal painn , denies nausea and vomitting and had 2 episode of diarrhea. Objective Vital Signs Date Time Temp Pulse Resp B/P (MAP) Pulse Ox O2 Delivery O2 Flow Rate FiO2 04/19/25 18:30 65 04/19/25 16:26 12 04/19/25 15:00 97.6 140/55 (83) 94 Room Air 04/17/25 09:42 0 Result Diagram: 04/19/25 0640 04/19/25 0640 General: Awake, oriented to person, place and time HEENT: Conjunctive are pink, sclerae clear, no icterus, pupil is equal in both sides, reactive to light, no ear discharge, no pharyngeal erythema or an edema. Neck: Supple, no JVD, no lymphadenopathy and thyromegaly. Chest: no additional sounds no rhonchi no wheezing at the moment. Cardiovascular: S1-S2 regular sinus rhythm and, regular rate, no gallops, no rubs, no murmurs Abdomen: No visible peristalsis, Bowel sounds present on auscultation, soft, m ild tenderness present near umbilicus, no guarding, no rigidity Extremities: Bilateral below-knee amputation, no pitting edema bilaterally. Neurologic: Mental status: alert and conscious, oriented to place, person and time, preserved memory, normal speech. Cranial nerves I-XII: Normal. Motor system: Preserved power, coordination, no evidenced involuntary movements, Sensory system: Preserved temperature, pain and vibration sensation. 2+ deep tendon reflexes in biceps, triceps, quadriceps. Negative Babinski. Cerebellar: No nystagmus, dysdiadochokinesia, normal [id number] testing. Musculoskeletal: No joint swelling, inflammations,and back tenderness Skin: Warm and dry. Dry oral mucosa. Coagulation Studies Laboratory Tests Test 04/16/25 23:18 Prothrombin Time 10.6 SECONDS (9.0-12.0) INR International Normalized Ratio 1.0 INR Activated Partial Thromboplast Time 24 SECONDS (22-32) Coagulation Comments Advance Care Planning Advanced Care plannin - 30 Minutes Plan Plan Chronic abdominal pain 2/2 recent celiac artery stent placement Patient has diffuse abdominal pain especially near the umbilical region, rated the pain 5/10 Abdominal CTA reported suspected pneumatosis intestinalis, possible bowel ischemia. 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 ED physician Dr. Monterroso consulted surgeon Dr. Anderson, wanted the patient to be admitted for pain management, Lactic acid normal, wbc normal, elevated alkaline phosphatase Dr Diaz was consulted who recommended abd/pelvis ct with oral contrast which showed Moderate distention small bowel loops and scattered regions of bowel wall thickening involving the small and large bowel which can be secondary to entero colitis, inflammatory disease. Possible small amount of pneumatosis within right abdominal small bowel loops, appears less pronounced than on previous examination. Dr Diaz recommended to resume diet. C diff is positive On vancomycin PO Q6h Hypertension Patient has a history of hypertension for which she takes antihypertensive medication, Currently patient has soft blood pressures, patient received 1 L fluid bolus in ED Continued carvedilol 6.25 and losartan 100 mg, BP 140/55 Hyperlipidemia LDL cholesterol 70, cholesterol 147, triglycerides 147 Patient has allergy to atorvastatin Diabetes mellitus type 2 HGB A1c well controlled at 5.4 Initiated the patient on hyperglycemia hypoglycemic protocol Chronic Congestive heart failure with with preserved ejection fraction not in acute excerabation Patient does not appear fluid overload,no crackle. ProBNP elevated at 6000 Patient received 1 L fluid bolus in ED as she was hypotensive. Echo shows LVEF is 65-70%. Continue carvedilol 6.25 mg, losartan 100 mg. Code Status: Full Code Dvt Prophylaxis: SCDS Disposition: Surgeon Dr Diaz was consulted who recommended CT abdomen pevlis with contrast as per surgeon continue to resume diet, continued Plavix and administered nasal saline for epistaxis history. Patient reports she was only taking plavix not xarelto. Awaiting PT possible discharge tomorrow. Date of Service: Apr 19, 2025 Billing Provider: VINAYAK QUINN MD,KAYLA, RES Apr 19, 2025 19:25
[2025-04-19] MEDS ORDERED: docusate sod 100mg capsule PO PRN (20:40)
[2025-04-19] MEDS: ondansetron/PF 4mg/2ml inj IV PRN (22:28)
[2025-04-20] VITALS (8 sets, daily range): BP systolic 107–137; BP diastolic 55–70; PULSE 30–73; RESP 12–18; TEMP 97–98.7; O2SAT 95–99
[2025-04-20 04:50] LABS: LEUKOCYTE ESTERASE ,URINE MODERATE (Neg); NITRITES, URINE NEGATIVE (Neg); OCCULT BLOOD,URINE MODERATE (Neg)
[2025-04-20 04:56] LABS: UA COLLECTION TYPE STRAIGHT CATH
[2025-04-20 05:00] LABS: SQUAMOUS EPITHELIAL CELL,UR NONE SEEN /LPF (FEW)
[2025-04-20 07:36] LABS: MEAN PLATELET VOLUME 6.5 FL (7.4-10.4); RED CELL DISTRIBUTION WIDTH 16.4 % (11.5-14.5)
[2025-04-20 07:57] LABS: CREATININE 0.39 MG/DL (0.40-0.90); TOTAL CARBON DIOXIDE 24.7 MMOL/L (24-32); eCRCL 105 ML/MIN; eGFR > 90 ML/MIN
[2025-04-20 09:03] LABS: BANDS% (MANUAL) 6.0 % (0-10); LYMPHOCYTES % (MANUAL) 17.0 % (21-51); METAMYLEOCYTES% (MANUAL) 1.0 % (0-0); MONOCYTES % (MANUAL) 4.0 % (2-12); NEUTROPHILS % (MANUAL) 72.0 % (42-75); PLATELET ESTIMATE INCREASED
[2025-04-20] MEDS: normal saline 1000ml 1,000 ML IV SCH (15:30)
--- NOTE | 2025-04-20 19:57 | PROGRESS NOTE- Residence ---
Progress Note - Resident Providers to CC Resident Creating Document: KAYLA GREGORIO RES ~ Antibiotic Timeout Antibiotic Ordered?: Yes Subjective Patient was seen and examined on bedside, reports mild abdominal painn , denies nausea and vomitting . Objective Vital Signs Date Time Temp Pulse Resp B/P (MAP) Pulse Ox O2 Delivery O2 Flow Rate FiO2 04/20/25 18:54 16 04/20/25 18:30 61 04/20/25 15:36 97.9 118/58 (78) 99 Room Air 04/19/25 19:30 0 21 Result Diagram: 04/20/25 0649 04/20/25 0649 General: Awake, oriented to person, place and time HEENT: Conjunctive are pink, sclerae clear, no icterus, pupil is equal in both sides, reactive to light, no ear discharge, no pharyngeal erythema or an edema. Neck: Supple, no JVD, no lymphadenopathy and thyromegaly. Chest: no additional sounds no rhonchi no wheezing at the moment. Cardiovascular: S1-S2 regular sinus rhythm and, regular rate, no gallops, no rubs, no murmurs Abdomen: No visible peristalsis, Bowel sounds present on auscultation, soft, m ild tenderness present near umbilicus, no guarding, no rigidity Extremities: Bilateral below-knee amputation, no pitting edema bilaterally. Neurologic: Mental status: alert and conscious, oriented to place, person and time, preserved memory, normal speech. Cranial nerves I-XII: Normal. Motor system: Preserved power, coordination, no evidenced involuntary movements, Sensory system: Preserved temperature, pain and vibration sensation. 2+ deep tendon reflexes in biceps, triceps, quadriceps. Negative Babinski. Cerebellar: No nystagmus, dysdiadochokinesia, normal [id number]-[id number] testing. Musculoskeletal: No joint swelling, inflammations,and back tenderness Skin: Warm and dry. Dry oral mucosa. Coagulation Studies Laboratory Tests Test 04/16/25 23:18 Prothrombin Time 10.6 SECONDS (9.0-12.0) INR International Normalized Ratio 1.0 INR Activated Partial Thromboplast Time 24 SECONDS (22-32) Coagulation Comments Advance Care Planning Advanced Care plannin - 30 Minutes Plan Plan Chronic abdominal pain 2/2 recent celiac artery stent placement Patient has diffuse abdominal pain especially near the umbilical region, rated the pain 5/10 Abdominal CTA reported suspected pneumatosis intestinalis, possible bowel ischemia. 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 ED physician Dr. Monterroso consulted surgeon Dr. Anderson, wanted the patient to be admitted for pain management, Lactic acid normal, wbc normal, elevated alkaline phosphatase Dr Diaz was consulted who recommended abd/pelvis ct with oral contrast which showed Moderate distention small bowel loops and scattered regions of bowel wall thickening involving the small and large bowel which can be secondary to entero colitis, inflammatory disease.Possible small amount of pneumatosis within right abdominal small bowel loops, appears less pronounced than on previous examination. Dr Diaz recommended to resume diet. C diff is positive On vancomycin PO Q6h Asymptomatic UTI Hypertension Patient has a history of hypertension for which she takes antihypertensive medication, Currently patient has soft blood pressures, patient received 1 L fluid bolus in ED Continued carvedilol 6.25 and losartan 100 mg Hyperlipidemia LDL cholesterol 70, cholesterol 147, triglycerides 147 Patient has allergy to atorvastatin Diabetes mellitus type 2 HGB A1c well controlled at 5.4 Initiated the patient on hyperglycemia hypoglycemic protocol Chronic Congestive heart failure with with preserved ejection fraction not in acute excerabation Patient does not appear fluid overload,no crackle. ProBNP elevated at 6000 Patient received 1 L fluid bolus in ED as she was hypotensive. Echo shows LVEF is 65-70%. Continue carvedilol 6.25 mg, losartan 100 mg. Code Status: Full Code Dvt Prophylaxis: SCDS Disposition: Surgeon Dr Diaz was consulted who recommended CT abdomen pevlis with contrast as per surgeon continue to resume diet, continued Plavix and administered nasal saline for epistaxis history. Patient reports she was only taking plavix not xarelto. Awaiting PT possible discharge tomorrow. Date of Service: Apr 20, 2025 Billing Provider: VINAYAK QUINN MD,KAYLA, RES Apr 20, 2025 19:57
[2025-04-21] VITALS (7 sets, daily range): BP systolic 103–154; BP diastolic 53–75; PULSE 54–85; RESP 12–21; TEMP 97.3–98.3; O2SAT 97–100
[2025-04-21 06:49] LABS: MEAN PLATELET VOLUME 6.3 FL (7.4-10.4); RED CELL DISTRIBUTION WIDTH 16.2 % (11.5-14.5)
[2025-04-21 07:29] LABS: CREATININE 0.42 MG/DL (0.40-0.90); TOTAL CARBON DIOXIDE 23.3 MMOL/L (24-32); eCRCL 97 ML/MIN; eGFR > 90 ML/MIN
[2025-04-21] MEDS: docusate sod 100mg capsule PO SCH (12:05)
--- NOTE | 2025-04-21 14:16 | PROGRESS NOTE- Residence ---
Progress Note - Resident Providers to CC Resident Creating Document: KAYLA GREGORIO RES ~ Antibiotic Timeout Antibiotic Ordered?: Yes Subjective Patient was seen and examined on bedside, reports mild abdominal pain. Objective Vital Signs Date Time Temp Pulse Resp B/P (MAP) Pulse Ox O2 Delivery O2 Flow Rate FiO2 04/21/25 06:30 57 04/21/25 06:06 16 04/21/25 02:00 97.3 132/62 (85) 98 Room Air 04/20/25 19:30 0 21 Result Diagram: 04/21/2561404/21/25614 General: Awake, oriented to person, place and time HEENT: Conjunctive are pink, sclerae clear, no icterus, pupil is equal in both sides, reactive to light, no ear discharge, no pharyngeal erythema or an edema. Neck: Supple, no JVD, no lymphadenopathy and thyromegaly. Chest: no additional sounds no rhonchi no wheezing at the moment. Cardiovascular: S1-S2 regular sinus rhythm and, regular rate, no gallops, no rubs, no murmurs Abdomen: No visible peristalsis, Bowel sounds present on auscultation, soft, m ild tenderness present near umbilicus, no guarding, no rigidity Extremities: Bilateral below-knee amputation, no pitting edema bilaterally. Neurologic: Mental status: alert and conscious, oriented to place, person and time, preserved memory, normal speech. Cranial nerves I-XII: Normal. Motor system: Preserved power, coordination, no evidenced involuntary movements, Sensory system: Preserved temperature, pain and vibration sensation. 2+ deep tendon reflexes in biceps, triceps, quadriceps. Negative Babinski. Cerebellar: No nystagmus, dysdiadochokinesia, normal ncdklq-[id number] testing. Musculoskeletal: No joint swelling, inflammations,and back tenderness Skin: Warm and dry. Coagulation Studies Laboratory Tests Test 04/16/25 23:18 Prothrombin Time 10.6 SECONDS (9.0-12.0) INR International Normalized Ratio 1.0 INR Activated Partial Thromboplast Time 24 SECONDS (22-32) Coagulation Comments Advance Care Planning Advanced Care plannin - 30 Minutes Plan Plan Chronic abdominal pain 2/2 recent celiac artery stent placement Abdominal CTA reported suspected pneumatosis intestinalis, possible bowel ischemia. 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 ED physician Dr. Monterroso consulted surgeon Dr. Anderson, wanted the patient to be admitted for pain management, Lactic acid normal, wbc normal, elevated alkaline phosphatase Dr Diaz was consulted who recommended abd/pelvis ct with oral contrast which showed Moderate distention small bowel loops and scattered regions of bowel wall thickening involving the small and large bowel which can be secondary to entero colitis, inflammatory disease.Possible small amount of pneumatosis within right abdominal small bowel loops, appears less pronounced than on previous examination. Dr Diaz recommended to resume diet. 04/21/25 In view of patient constipation started Coalace 100 mg BID PO Started Reglan inj Q6H C diff is positive On vancomycin PO Q6h Asymptomatic UTI Hypertension Patient has a history of hypertension for which she takes antihypertensive medication, Currently patient had soft blood pressures, patient received 1 L fluid bolus in ED Continued carvedilol 6.25 and losartan 100 mg Hyperlipidemia LDL cholesterol 70, cholesterol 147, triglycerides 147 Patient has allergy to atorvastatin 04/21/25 Started On Pravastatin 20 mg PO Diabetes mellitus type 2 HGB A1c well controlled at 5.4 Initiated the patient on hyperglycemia hypoglycemic protocol Chronic Congestive heart failure with with preserved ejection fraction not in acute excerabation Patient does not appear fluid overload,no crackle. ProBNP elevated at 6000 Patient received 1 L fluid bolus in ED as she was hypotensive. Echo shows LVEF is 65-70%. Continue carvedilol 6.25 mg, losartan 100 mg. Severe Malnourishment On multivitamins. BMI 17.9, Albumin 1.7 Code Status: Full Code Dvt Prophylaxis: Plavix Disposition: Surgeon Dr. Dorado was consulted who recommended no further intervention and resumed diet. Awaiting PT possible discharge tomorrow. Date of Service: Apr 21, 2025 Billing Provider: AMEYA MAHONEY MD Common Visit Codes: 42762-[id number] INP/OBS CARE(HIGH) KAYLA GREGORIO, RES Apr 21, 2025 14:16 AMEYA MAHONEY MD Apr 23, 2025 06:42
[2025-04-21] MEDS: metoclopramide 5 mg/ml inj IV SCH (14:33)
[2025-04-21] MEDS ORDERED: JUVEN Smoothie Arginine/Glut./Ca2+Bmb (Juven 19.3pkt) 240ml cup PO SCH (17:30)
[2025-04-22 03:12] VITALS: BP 149/69; PULSE 76; RESP 14; TEMP 98; O2SAT 98
[2025-04-22 06:00] VITALS: BP 165/97; PULSE 80; RESP 18; TEMP 98.1; O2SAT 100
[2025-04-22 06:25] LABS: MEAN PLATELET VOLUME 6.4 FL (7.4-10.4); RED CELL DISTRIBUTION WIDTH 16.2 % (11.5-14.5)
[2025-04-22 06:47] LABS: CREATININE 0.25 MG/DL (0.40-0.90); TOTAL CARBON DIOXIDE 25.0 MMOL/L (24-32); eCRCL 164 ML/MIN; eGFR > 90 ML/MIN
[2025-04-22] MEDS: ENSURE CLEAR - 237ml PO SCH (08:35)
[2025-04-22] MEDS: JUVEN Smoothie Arginine/Glut./Ca2+Bmb (Juven 19.3pkt) 240ml cup PO SCH (08:36)
[2025-04-22 10:29] VITALS: BP 151/72; PULSE 68; RESP 18; TEMP 98.6; O2SAT 98
--- NOTE | 2025-04-22 17:53 | PROGRESS NOTE- Residence ---
Progress Note - Resident Providers to CC Resident Creating Document: KAYLA GREGORIO RES ~ Antibiotic Timeout Antibiotic Ordered?: Yes Subjective Patient was seen and examined on bedside, reports nauseated, vomitted 3 times, complaining of abdominal pain and had an 1 episode of diarhea. Objective Vital Signs Date Time Temp Pulse Resp B/P (MAP) Pulse Ox O2 Delivery O2 Flow Rate FiO2 04/22/25 10:29 98.6 68 18 151/72 (98) 98 Room Air 04/22/25 08:00 0.0 21 Result Diagram: 04/22/25 0551 04/22/25 0551 General: Awake, oriented to person, place and time HEENT: Conjunctive are pink, sclerae clear, no icterus, pupil is equal in both sides, reactive to light, no ear discharge, no pharyngeal erythema or an edema. Neck: Supple, no JVD, no lymphadenopathy and thyromegaly. Chest: no additional sounds no rhonchi no wheezing at the moment. Cardiovascular: S1-S2 regular sinus rhythm and, regular rate, no gallops, no rubs, no murmurs Abdomen: No visible peristalsis, Bowel sounds present on auscultation, soft, m ild tenderness present near umbilicus, no guarding, no rigidity Extremities: Bilateral below-knee amputation, no pitting edema bilaterally. Neurologic: Mental status: alert and conscious, oriented to place, person and time, preserved memory, normal speech. Cranial nerves I-XII: Normal. Motor system: Preserved power, coordination, no evidenced involuntary movements, Sensory system: Preserved temperature, pain and vibration sensation. 2+ deep tendon reflexes in biceps, triceps, quadriceps. Negative Babinski. Cerebellar: No nystagmus, dysdiadochokinesia, normal [id number] testing. Musculoskeletal: No joint swelling, inflammations,and back tenderness Skin: Warm and dry. Coagulation Studies Laboratory Tests Test 04/16/25 23:18 Prothrombin Time 10.6 SECONDS (9.0-12.0) INR International Normalized Ratio 1.0 INR Activated Partial Thromboplast Time 24 SECONDS (22-32) Coagulation Comments Advance Care Planning Advanced Care plannin - 30 Minutes Plan Plan Chronic abdominal pain 2/2 recent celiac artery stent placement Abdominal CTA reported suspected pneumatosis intestinalis, possible bowel ischemia. 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 ED physician Dr. Monterroso consulted surgeon Dr. Anderson, wanted the patient to be admitted for pain management, Lactic acid normal,elevated alkaline phosphatase Dr Diaz was consulted who recommended abd/pelvis ct with oral contrast which showed Moderate distention small bowel loops and scattered regions of bowel wall thickening involving the small and large bowel which can be secondary to entero colitis, inflammatory disease.Possible small amount of pneumatosis within right abdominal small bowel loops, appears less pronounced than on previous examination. Dr Diaz recommended no intervention, and continue to resume diet. In view of patient constipation started Coalace 100 mg BID PO. Reglan inj Q6H for nausea. 04/22/25: Leukocytosis trended upward, possible secondary to C.diff infection. C diff is positive On vancomycin day 5 ,PO Q6h Asymptomatic UTI Hypertension Patient has a history of hypertension for which she takes antihypertensive medication, Currently patient had soft blood pressures, patient received 1 L fluid bolus in ED Continued carvedilol 6.25 and losartan 100 mg Hyperlipidemia LDL cholesterol 70, cholesterol 147, triglycerides 147 Patient has allergy to atorvastatin In view of this patient on pravastatin 20 mg Diabetes mellitus type 2 HGB A1c well controlled at 5.4 Initiated the patient on hyperglycemia hypoglycemic protocol Chronic Congestive heart failure with with preserved ejection fraction not in acute excerabation Patient does not appear fluid overload,no crackle. ProBNP elevated at 6000 Patient received 1 L fluid bolus in ED as she was hypotensive. Echo shows LVEF is 65-70%. Continue carvedilol 6.25 mg, losartan 100 mg. 04/22/27 On lasix 20 Mg IV BID Severe Malnourishment On multivitamins. Code Status: Full Code Dvt Prophylaxis: Plavix Disposition: Continued plavix 75 mg, will get records from other facilities, xarelto on hold currently. Follow up with Records from other facilities, patient reports bleeding from nose. Awaiting PT possible discharge tomorrow. Date of Service: Apr 22, 2025 Billing Provider: AMEYA MAHONEY MD Common Visit Codes: [id number] INP/OBS CARE(HIGH) KAYLA GREGORIO, RES Apr 22, 2025 17:53 AMEYA MAHONEY MD Apr 23, 2025 06:43
[2025-04-22 18:00] VITALS: BP 128/70; PULSE 82; RESP 20; TEMP 97.6; O2SAT 97
[2025-04-22 22:00] VITALS: BP 126/60; PULSE 76; RESP 14; TEMP 97.1; O2SAT 96
[2025-04-23 06:45] LABS: CREATININE 0.35 MG/DL (0.40-0.90); TOTAL CARBON DIOXIDE 24.3 MMOL/L (24-32); eCRCL 117 ML/MIN; eGFR > 90 ML/MIN
[2025-04-23 06:58] VITALS: BP 135/55; PULSE 70; RESP 18; TEMP 97.5; O2SAT 100
[2025-04-23 07:21] LABS: MEAN PLATELET VOLUME 6.2 FL (7.4-10.4); RED CELL DISTRIBUTION WIDTH 16.3 % (11.5-14.5)
[2025-04-23 08:00] VITALS: RESP 14
[2025-04-23 08:52] LABS: PLATELET ESTIMATE INCREASED
[2025-04-23 11:12] VITALS: BP 116/60; PULSE 75; RESP 16; TEMP 98.6; O2SAT 98
[2025-04-23] MEDS ORDERED: HYDR-3973 PO (13:01)
[2025-04-23 13:53] VITALS: RESP 16
[2025-04-23] MEDS ORDERED: VANC125C19 PO (14:58)
[2025-04-23] MEDS ORDERED: PRAV40TA17 PO (15:04)
--- NOTE | 2025-04-23 15:43 | DISCHARGE SUMMARY-Residence ---
Discharge Summary Providers to CC Resident Creating Document: DEIRDRE BALDERAS RES ~ Discharge Summary Admission Diagnosis: ABDOMINAL PAIN Hospital Course DATE OF ADMISSION: 04/16/25 DATE OF DISCHARGE: 04/23/25 Imaging- Abdomen pelvis CTA- 1. Evidence of suspected pneumatosis intestinalis interval short-segment of presumed small bowel with the areas of bubbly lucency internally (axial 77). Imaging finding may be compatible with bowel ischemia. Correlate with lactate levels. 2. Mixed atherosclerotic plaque with distal complete occlusion of the superior mesenteric artery 3. Appearance of complete occlusion of the right external iliac artery 4. Poor distal opacification of bilateral proximal femurs of the proximal femoral arteries. 5. Significant narrowing of bilateral common iliac arteries secondary to soft plaque with greater than 75 percent stenosis 6. Nonvisualization of the inferior mesenteric artery likely completely occluded CHEST X-RAY- Lungs and pleural spaces are clear. Cardiac silhouette and north are within normal limits. Bones and soft tissues demonstrate no significant abnormality. ECHOCARDIOGRAM- Normal LV size and wall thickness. Overall systolic function is normal. LVEF is 65-70%. RV is normal size and function. The left atrium size is normal. Trileaflet AV appears mildly sclerotic without stenosis. No insufficiency. Mild mitral annular calcification without stenosis Trace regurgitation. TV appears structurally normal with trace regurgitation. Normal pericardium. No effusion. ABDOMEN PELVIS CT DONE ON April- Limited evaluation without contrast. Can not appropriately evaluate the mesenteric circulation without IV contrast. Moderate distention small bowel loops and scattered regions of bowel wall thick ening involving the small and large bowel which can be secondary to entero colitis, inflammatory disease. Possible small amount of pneumatosis within right abdominal small bowel loops, appears less pronounced than on previous examination. Again, correlate for ischemia Enteric contrast reaches the rectum. Atherosclerotic disease. 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 Nonobstructing bilateral renal calculi. Discharge Diagnosis\Comment: Chronic abdominal pain 2/2 recent celiac artery stent placement C diff diarrhea Asymptomatic bacteriuria Hypertension Hyperlipidemia Diabetes mellitus type 2 Chronic Congestive heart failure with with preserved ejection fraction not in acute excerabation Severe Malnourishment Operations\Procedures: None Consultants: Surgery Complications: None Condition on DC: Stable New Medications: Hydrocodone Bit/Acetaminophen (Hydrocodone-Apap 10-325 Tablet) 10mg/325mg Tablet 1 TAB PO QID PRN PRN for pain for 5 Days, #20 TAB Vancomycin Hcl (Vancomycin Hcl) 125 Mg Capsule 1 CAP PO Q6H for 5 Days, #20 CAP Pravastatin Sodium (Pravastatin Sodium) 40 Mg Tablet 20 MG PO HS, #30 TAB Continued Medications: Carvedilol (Carvedilol) 6.25 Mg Tablet 1 TAB PO DAILY Clopidogrel Bisulfate (Clopidogrel) 75 Mg Tablet 1 TAB PO DAILY Furosemide (Furosemide) 20 Mg Tablet 1 TAB PO DAILY Glimepiride (Glimepiride) 2 Mg Tablet 1 TAB PO DAILY Lisinopril (Lisinopril) 5 Mg Tablet 1 TAB PO DAILY Losartan Potassium (Losartan Potassium) 100 Mg Tablet 1 TAB PO DAILY Oxycodone Hcl (Roxicodone) 5 Mg Tablet 1 TAB PO QID PRN for pain Rivaroxaban (Xarelto) 2.5 Mg Tablet Sennosides (Senna) 8.6 Mg Tablet 2 TAB PO DAILY Spironolactone (Spironolactone) 25 Mg Tablet 1 TAB PO DAILY Discontinued Medications: Hydrochlorothiazide (Hydrochlorothiazide) 25 Mg Tablet 1 TAB PO DAILY Discharge Summary: A 64-year-old female patient with a medical history that includes type 2 diabetes complicated by bilateral below-knee amputations, hyperlipidemia, hypertension, and congestive heart failure, recently underwent a celiac artery stent placement a few weeks ago. She presented to the (ED) with complaints of abdominal pain. The patient described her abdominal pain as diffuse, with more severe discomfort around the umbilical area. She rated the pain as a 5 out of 10 and denied any radiation, aggravating, or relieving factors. The patient mentioned that she felt perfectly normal until a couple of weeks ago when she developed severe abdominal pain, which led to her celiac artery stent placement. The patient was admitted to [facility] yesterday for abdominal pain. As per patient, despite or letting them know that she experiences mild bleeding after receiving blood thinners, she was given a blood thinner, which resulted in profuse nasal bleeding. Dissatisfied with her treatment at [place], she chose to discharge herself. Her abdominal pain persisted, prompting her to return to our emergency department. The patient's primary care physician is located at the [facility]. She lives in her home with her and uses an electric wheelchair for mobility. Although she has prosthetic limbs, she finds them uncomfortable to use. COURSE DURING THE HOSPITAL STAY- DR. MCNALLY vascular and General surgeon was consulted and recommended CT abdomen which was unremarkable for which he recommended continuation of regular diet and recommended that no intervention was needed at this time. She was mainly managed for her pain and nausea. In the next few days patient developed diarrhea, was tested for C diff which was positive. We started her on p.o. vancomycin. She took her 5 days of p.o. vanc when she was in the hospital, we discharged her with p.o. vancomycin, total duration for 2 weeks. Her pain significantly improved over the next few days in the hospital and was ready to be discharged. Patient's condition was stable at the time of discharge. Vital Signs Date Time Temp Pulse Resp B/P (MAP) Pulse Ox O2 Delivery O2 Flow Rate FiO2 04/23/25 13:53 16 04/23/25 11:12 98.6 75 116/60 (78) 98 Room Air 04/23/25 08:00 21 04/22/25 20:00 0.0 Laboratory Tests Test 04/22/25 05:51 04/23/25 04:35 04/23/25 06:42 White Blood Count 13.4 X10'3 9.9 X10'3 Red Blood Count 3.46 X10'6 3.22 X10'6 Hemoglobin 10.7 g/dl 10.0 g/dl Hematocrit 31.6 % 29.4 % Mean Corpuscular Volume 91.3 FL 91.2 FL Mean Corpuscular Hemoglobin 30.9 PG 30.9 PG Mean Corpuscular Hemoglobin Concent 33.9 g/dL 33.9 g/dL Red Cell Distribution Width 16.2 % 16.3 % Platelet Count 510 X10'3 479 X10'3 Mean Platelet Volume 6.4 FL 6.2 FL Neutrophils (%) (Auto) 88.0 % 74.5 % Lymphocytes (%) (Auto) 7.9 % 18.2 % Monocytes (%) (Auto) 3.8 % 6.6 % Eosinophils (%) (Auto) 0.1 % 0.4 % Basophils (%) (Auto) 0.2 % 0.3 % Neutrophils # (Auto) 11.8 X10'3 7.4 X10'3 Lymphocytes # (Auto) 1.1 X10'3 1.8 X10'3 Monocytes # (Auto) 0.5 X10'3 0.7 X10'3 Eosinophils # (Auto) 0.0 X10'3 0.0 X10'3 Basophils # (Auto) 0.0 X10'3 0.0 X10'3 CBC Comment Sodium Level 135 MMOL/L 136 MMOL/L Potassium Level 3.5 MMOL/L 3.7 MMOL/L Chloride Level 99 MMOL/L 103 MMOL/L Carbon Dioxide Level 25.0 MMOL/L 24.3 MMOL/L Anion Gap 11 9 Blood Urea Nitrogen 8 MG/DL 12 MG/DL Creatinine 0.25 MG/DL 0.35 MG/DL Estimated GFR/1.73 m2 > 90 ML/MIN > 90 ML/MIN BUN/Creatinine Ratio 32.0 34.3 Glucose Level 159 MG/DL 96 MG/DL Calcium Level 8.2 MG/DL 8.1 MG/DL Albumin 2.0 G/DL 1.9 G/DL Chemistry Comments Platelet Estimate Increased Red Blood Cell Morphology Perf Hypochromasia 1+ Basophilic Stippling Anisocytosis 1+ Stomatocytes 2+ Physical examination at the time of discharge- General: Awake, oriented to person, place and time HEENT: Conjunctive are pink, sclerae clear, no icterus, pupil is equal in both sides, reactive to light, no ear discharge, no pharyngeal erythema or an edema. Neck: Supple, no JVD, no lymphadenopathy and thyromegaly. Chest: no additional sounds no rhonchi no wheezing at the moment. Cardiovascular: S1-S2 regular sinus rhythm and, regular rate, no gallops, no rubs, no murmurs Abdomen: No visible peristalsis, Bowel sounds present on auscultation, soft, no tenderness, no guarding, no rigidity Extremities: Bilateral below-knee amputation, no pitting edema bilaterally. Neurologic: Mental status: alert and conscious, oriented to place, person and time, preserved memory, normal speech. Cranial nerves I-XII: Normal. Motor system: Preserved power, coordination, no evidenced involuntary movements, Sensory system: Preserved temperature, pain and vibration sensation. 2+ deep tendon reflexes in biceps, triceps, quadriceps. Negative Babinski. Cerebellar: No nystagmus, dysdiadochokinesia, normal [id number] testing. Musculoskeletal: No joint swelling, inflammations,and back tenderness Skin: Warm and dry. Discharge medications- New Medications: Hydrocodone Bit/Acetaminophen (Hydrocodone-Apap 10-325 Tablet) 10mg/325mg Tablet Vancomycin Hcl 125 Mg Capsule Pravastatin Sodium 40 Mg Tablet Continued Medications: Carvedilol 6.25 Mg Tablet Clopidogrel Bisulfate (Clopidogrel) 75 Mg Tablet Furosemide 20 Mg Tablet Glimepiride 2 Mg Tablet Lisinopril 5 Mg Tablet Losartan Potassium 100 Mg Tablet Oxycodone Hcl (Roxicodone) 5 Mg Tablet Rivaroxaban (Xarelto) 2.5 Mg Tablet Sennosides (Senna) 8.6 Mg Tablet Spironolactone 25 Mg Tablet Discontinued Medications: Hydrochlorothiazide 25 Mg Tablet Instructions by the doctor at time of discharge- *Problems/Diagnosis: (1) Abdominal pain Status: Acute Total Time Spent on D/C: > 30 Minutes Date of Service: Apr 23, 2025 Billing Provider: AMEYA MAHONEY MD, PREETHI, RES Apr 23, 2025 15:28
== END 2025-04-23 16:10 | disposition home health service (06) | DRG 248 ==
LOC: ER 16:32 → UNDOADMIN 22:51 → ED HOLD 22:51 → EDBEDREQ 04-17 06:39 → PCU 3S 04-17 09:55 → SUR 3N 04-21 18:04
PROVIDERS: ADMIT Internal Medicine; ATTEND Internal Medicine
DX: A04.72 Enterocolitis due to Clostridium difficile, not specified as recurrent (principal); E43 Unspecified severe protein-calorie malnutrition; I11.0 Hypertensive heart disease with heart failure; E78.5 Hyperlipidemia, unspecified; I50.32 Chronic diastolic (congestive) heart failure; R82.71 Bacteriuria; Z87.891 Personal history of nicotine dependence; Z68.1 Body mass index [BMI] 19.9 or less, adult
CPT/HCPCS: 36415; 71045; 74174; 74176; 80048; 80053; 80061; 81001; 83036; 83540; 83550; 83605; 83735; 83880; 84100; 85007; 85008; 85025; 85610; 85730; 87077; 87081; 87088; 87186; 87324; 87449; 93306; 96360; 97110; 97162; 97530; 99285; A4314; A6212; A6213; A6250; A6449; A6590; G0378; J0780; J1171; J1815; J1938; J2405; J2765; J7030; J7040; Q9963; Q9967